=== PATIENT | female | born 1950 | race Caucasian/White ===

== ENCOUNTER → 2016-11-16 | Outpatient (CLI) | payer MEDICARE ==
[2016-11-16 13:17] LABS: Basophils % (A) 1 %; CH 26.7; CHCM 30.8; Eosinophils # (A) 0.1 k/uL (0-0.7); Eosinophils % (A) 3 %; HCT 42.5 % (34.0-46.0); HDW 2.51; HGB 13.3 gm/dL (11.4-16.0); Hypochromasia Slight; Luc # (Auto) 0.09; Luc % (Auto) 2; Lymphocytes # (A) 0.5 k/uL (1.0-4.8); Lymphocytes % (A) 12 %; MCH 27.1 pg (25.0-35.0); MCHC 31.2 g/dL (31.0-37.0); MCV 86.9 fL (80.0-100.0); Mean Platelet Volume 7.4; Monocytes # (A) 0.2 k/uL (0-1.0); Monocytes % (A) 4 %; Neutrophils # (A) 3.4 k/uL (1.3-7.7); Neutrophils % (A) 78 %; RDW 14.9 % (11.5-15.5); WBC 4.4 k/uL (3.8-10.6); WBC (Perox) 4.46
[2016-11-16 13:36] LABS: Partial Thromboplastin Time 26.3 sec (22.0-30.0); Prothrombin Time 10.5 sec (9.0-12.0)
[2016-11-16 13:46] LABS: Potassium 3.9 mmol/L (3.5-5.1)
== END | disposition home or self-care (01) ==
LOC: LABPAT 12:20
PROVIDERS: ATTEND Orthopaedic Surgery
DX: Z01.810 Encounter for preprocedural cardiovascular examination (principal); Z01.812 Encounter for preprocedural laboratory examination; M16.12 Unilateral primary osteoarthritis, left hip
CPT/HCPCS: 80051; 85025; 85610; 85730; 86850; 86900; 86901; 87070

== ENCOUNTER 2016-11-24 06:19 | Inpatient (IN) | payer MEDICARE ==
[2016-11-17 14:36] VITALS: BMI 43.4
--- NOTE | 2016-11-23 11:13 | HP ---
DATE OF ADMISSION: CHIEF COMPLAINT: Left hip pain. HISTORY OF PRESENT ILLNESS: The patient is a 66-year-old retired female who presents with progressive left hip and groin pain for the past year. It is worse with weight-bearing activities. She takes medications with partial temporary relief. She underwent right total hip arthroplasty in July of 2016 with good resolution of her symptoms. PAST MEDICAL HISTORY: Significant for arthritis, hypertension, hypothyroidism, and depression. PAST SURGICAL HISTORY: Significant for right total knee arthroplasty, right total hip arthroplasty. CURRENT MEDICATIONS: 1. Levothyroxine. 2. Potassium. 3. Aspirin. 4. Fentanyl patch. 5. Hydrochlorothiazide. 6. Plaquenil. 7. Tylenol. She has allergies to BEXTRA. FAMILY HISTORY: Significant for cancer. SOCIAL HISTORY: Negative for current tobacco or alcohol use. A 16-point review of systems otherwise reviewed and is noncontributory. On examination, the patient is approximately 5 foot 4, 275 pounds of endomorphic habitus. HEENT exam is nonfocal. Neck is supple. She is nontender about the lumbar spine. Passive motion of the left hip, flexion 70 degrees, external rotation with the hip flexed 50 degrees, internal rotation 0 degrees with pain. Her distal neurovascular exam appears be intact in the left lower extremity. AP of the pelvis obtained in the office shows severe left hip osteoarthrosis with [id number] changes. IMPRESSIONS: 1. Left hip osteoarthrosis - severe. 2. Increased body mass index. RECOMMENDATIONS: I talked to the patient at length regarding her treatment options. At this point, she opts to proceed with surgery. We will plan to proceed with left total hip arthroplasty. Risks and benefits are discussed at length in layman's terms. We will institute DVT prophylaxis postoperatively.
[~2016-11-24 06:19] MED LIST: ACETAMINOPHEN TAB 500 MG TAB PO ONE; DEXAMETHASONE SOD PHOSPHATE 10 MG/ML 1 ML VIAL IV ONE; HYDROmorphone 1 MG/ML 1 ML SYRINGE IVP PRN; MELOXICAM 7.5 MG TAB PO ONE; MIDAZOLAM 2 MG/2 ML VIAL IV PRN; ONDANSETRON 4 MG/2 ML VIAL IVP ONE; TRANEXAMIC ACID 1,000 MG in SODIUM CHLORIDE 0.9% 100 ML IVPB ONE; ceFAZolin 2 GM in SODIUM CHLORIDE 0.9% 100 ML IVPB ONE
[2016-11-24] MEDS: LACTATED RINGERS 1,000 ML IV SCH ×2 (07:09→23:02)
[2016-11-24] MEDS ORDERED: SCOPOLAMINE 1.5MG/72HR PATCH TRANSDERM ONE (07:09)
[2016-11-24] MEDS ORDERED: diphenhydrAMINE 50 MG/ML 1 ML VIAL ONE (07:58)
[2016-11-24] MEDS ORDERED: TRANEXAMIC ACID 1,000 MG/10 ML VIAL ONE (07:58)
[2016-11-24] MEDS ORDERED: fentaNYL (PF) 50 MCG/ML 2 ML AMP ONE (07:58)
[2016-11-24] MEDS ORDERED: MIDAZOLAM 2 MG/2 ML VIAL ONE (07:58)
[2016-11-24] MEDS ORDERED: PHENYLEPHRINE-0.9% NACL SYG 1 MG/10 ML SYRINGE ONE (07:58)
[2016-11-24] MEDS ORDERED: SODIUM CHLORIDE 0.9% 100 ML BAG ONE (07:58)
[2016-11-24] MEDS ORDERED: MORPHINE SULFATE (PF) 0.3 MG/0.3 ML SYR ONE (07:58)
[2016-11-24] MEDS ORDERED: PROPOFOL 10 MG/ML 20 ML VIAL IV ONE (07:58)
[2016-11-24] MEDS ORDERED: ePHEDrine 50 MG/ML 1 ML AMP ONE (07:58)
[2016-11-24] MEDS ORDERED: ceFAZolin 3,000 MG in SODIUM CHLORIDE 0.9% IRRIGATIO 3,000 ML IRRIGATION ONE (08:39)
[2016-11-24] MEDS ORDERED: LACTATED RINGERS 1,000 ML IV ONE ×2 (09:04→11:14)
[2016-11-24] MEDS ORDERED: HYDROcodone/APAP 7.5-325MG 1 EACH TAB PO PRN (09:58)
[2016-11-24] MEDS ORDERED: NALOXONE 0.4 MG/ML 1 ML VIAL IV PRN ×2 (09:58→14:06)
[2016-11-24] MEDS ORDERED: traMADol 50 MG TAB PO PRN (09:58)
[2016-11-24] MEDS ORDERED: HYDROmorphone 1 MG/ML 1 ML SYRINGE IVP PRN (09:58)
[2016-11-24] MEDS ORDERED: MAGNESIUM HYDROXIDE 2,400 MG/10 ML CUP PO PRN (09:58)
[2016-11-24] MEDS ORDERED: ONDANSETRON 4 MG/2 ML VIAL IVP PRN ×2 (09:58→14:06)
--- NOTE | 2016-11-24 10:37 | P.OP ---
Date of Procedure: 11/24/16 Preoperative Diagnosis: Left hip severe osteoarthrosis-primary Postoperative Diagnosis: Same Procedure(s) Performed: Left total hip cwfudirhzvpc-yqfbf-jag-lateral approach Implants: Depuy Corail size 12 coxa vera collared press-fit femoral stem, 32 mm +9 cobalt chrome femoral head, 52 mm acetabular shell with neutral polyethylene liner Anesthesia: spinal Surgeon: Star Caraballo Manager Landscape #1: Theodore Driver Estimated Blood Loss (ml): 250 Pathology: other (Femoral head) Condition: stable Disposition: PACU Indications for Procedure: The patient's a 66-year-old female who presents with progressive left hip pain secondary osteoarthrosis despite conservative treatment. A discussion of the risks and benefits of operative intervention versus continued conservative measures was made with the patient. She opted to proceed with surgery. Operative risks to include infection, neurovascular injury, development of blood clots, possible leg length discrepancy, possible dislocation, possible component loosening and need for subsequent procedures was discussed. Informed consent was obtained. Operative Findings: As below Description of Procedure: The patient was brought to the operating room, and after induction of spinal anesthesia was positioned lateral on the pegboard. Bony prominences were appropriately padded. The pelvis was stabilized perpendicular to the floor with a pegboard. The left lower extremity was prepped and draped in a normal fashion. Preoperative templating was previously performed to estimate component positioning and sizes. A longitudinal incision extending approximately 15 cm was then made centered over the greater trochanter extending superiorly to level ASIS and distally in line with the femoral shaft. The skin and subcutaneous tissues were divided sharply. Electrocautery was used for hemostasis. The fascia ayan and gluteus davie fascia was split in line skin incision. The muscle fibers were bluntly dissected proximally. The anterior and posterior margins the gluteus medius muscles identified in the anterior two thirds detached from the greater trochanter with electrocautery. The gluteus minimus tendon was identified and detached in a similar fashion. A wide capsulotomy was performed. The hip was gently dislocated. The neck was cut approximately 1 1/2 cm above the level of the lesser trochanter with a sagittal saw at a 45 angle to the shaft. The head was then extracted. Attention was then paid towards preparing the acetabulum. Retractors were placed anterior and posteriorly. The remaining labral and capsular tissue was debrided sharply clearly defining the acetabular margins. I began reaming with a 44 mm reamer taking care to initially medialize and then reaming at 45 of abduction and 20 of anteversion. Sequential reaming was performed up to 51 mm down to a bleeding bony surface. A trial 52 mm acetabular shell was inserted in 20 of anteversion and 45 of abduction. This was fully seated. There was good rim fit and stability. The trial component was removed. The final component was inserted in the same orientation and was fully seated. Again there was good rim fit and stability. A 6.5 mm x 25 mm cancellus screws placed posterior-superior. This obtained good purchase. A neutral polyethylene liner was then gently impacted. Care was taken to avoid any soft tissue interposition. Pulsatile lavage was utilized. Attention was then paid towards preparing the proximal femur. A box chisel was used to open the metaphyseal region. A canal finder was used to find the femoral canal. Sequential broaching was performed with the leg perpendicular to the floor in 15 of anteversion up to a size 12 broach. There was good rotational stability. A calcar mill was used to fashion a medial calcar. A coxa vara neck along with a 32 mm +9 head was placed. The hip was gently relocated. It was taken through a range of motion. I had good stability in flexion and extension with internal and external rotation. Again I felt there was good confucianist of soft tissue tension. The hip was gently dislocated. The trial components were then removed. The final femoral stem was inserted again with the leg perpendicular to the floor in 15 of anteversion. There was good rotational stability. The 32 mm +9 cobalt chrome head was gently impacted. The hip was reduced. The hip was taken through range of motion. Again there is good stability in flexion and extension with internal and external rotation. There was good confucianist of soft tissue tension. Pulsatile lavage was again utilized. The gluteus medius and minimus tendons reattached the greater trochanter with #2 Ethibond suture. A deep drain was placed exiting anteriorly. The gluteus davie fascia was closed with #2 Ethibond suture. The deep subcutaneous tissues reapproximated interrupted 0 Vicryl sutures. The superficial subcu tissues reapproximated with interrupted 2-0 Vicryl sutures. The skin was reprepped with 3-0 subcuticular strata fix suture. Skin tape and adhesive was applied. The patient was then awoken from sedation and transferred to recovery room in good condition. Blood loss was estimated at 250 mL. No complications were incurred. Sponge and needle counts were correct at the end the case.
--- NOTE | 2016-11-24 10:47 | XR ---
EXAMINATION TYPE: XR Hip Limited LT DATE OF EXAM: 11/24/2016 10:41 AM CLINICAL HISTORY: Left hip pain and osteoarthritis. TECHNIQUE: Single AP portable view of left hip is obtained immediately postoperatively. COMPARISON: None. FINDINGS: Metallic hardware from left hip arthroplasty is seen and appears satisfactory in alignment and position. There is evidence of recent surgery with subcutaneous gas noted at metallic neck compo nent and percutaneous drainage catheter. IMPRESSION: Metallic hardware from left hip arthroplasty is satisfactory in position.
[2016-11-24 13:01] VITALS: RESP 16
[2016-11-24] MEDS ORDERED: ONDANSETRON 4 MG/2 ML VIAL IVP ONE (13:13)
[2016-11-24] MEDS ORDERED: MORPHINE SULFATE 4 MG/ML SYRINGE IVP PRN (14:06)
[2016-11-24] MEDS: ceFAZolin 2 GM in SODIUM CHLORIDE 0.9% 100 ML IVPB SCH ×2 (17:01→23:02)
[2016-11-24] MEDS: diphenhydrAMINE 50 MG/ML 1 ML VIAL IVP PRN (17:25)
--- NOTE | 2016-11-24 19:57 | CONS ---
DATE OF CONSULTATION: 11/24/2016 REASON FOR CONSULTATION: Medical management requested by Dr. Caraballo. CONSULTATION: This is a pleasant 66-year-old patient of Dr. Leblanc who has undergone a left total hip arthroplasty. Patient's chronic stable medical conditions include rheumatoid arthritis, hypothyroid, urinary stress incontinence. Post procedure patient is propped up in bed, has a scopolamine patch. No nausea or vomiting. Comfortable. REVIEW OF SYSTEMS: CONSTITUTIONAL: None. HEENT: None. RESPIRATORY: None. CARDIOVASCULAR: None. GASTROINTESTINAL: None. GENITOURINARY: Bergman catheter. DERMATOLOGICAL: Negative. HEMATOLOGICAL: None. LYMPATICS: None. PSYCHIATRIC: None. NEUROLOGICAL: None. MUSCULOSKELETAL: As above. PAST MEDICAL HISTORY: 1. Osteoarthritis. 2. Rheumatoid arthritis. 3. Hypothyroid. 4. Urinary stress incontinence. PAST SURGICAL HISTORY: 1. Adenoidectomy. 2. Breast surgery. 3. Cholecystectomy. 4. Tonsillectomy. 5. Right knee replacement. SOCIAL HISTORY: Does not smoke or drink alcohol. Lives by herself. FAMILY HISTORY: Reviewed; non-contributory to presentation. ALLERGIES: BEXTRA. HOME MEDICATIONS: 1. Fentanyl 50 mcg patch every 72 hours. 2. Senokot-S 1 to 3 tablets p.o. daily. 3. Unithroid 175 mcg p.o. daily. 4. Plaquenil 200 mg p.o. b.i.d. 5. Hydrochlorothiazide 50 mg p.o. daily. 6. Vitamin D3 10,000 units p.o. Wednesday. 7. Aspirin 325 p.o. b.i.d. 8. Tylenol Arthritis. ALLERGIES: BEXTRA. On examination, temperature 97, pulse 88, respiration 16, blood pressure 130/61, pulse ox 96% on room air. GENERAL APPEARANCE: Well built; BMI of 43.4. Sitting up, comfortable. EYES: Pupils equal. Conjunctivae normal. Oral cavity normal. NECK: JVD not raised. Mass not palpable. RESPIRATORY: Effort normal. LUNGS: Clear. CARDIOVASCULAR: First and second sounds normal. No edema. ABDOMEN: Soft, nontender. Liver and spleen not palpable. PSYCHIATRY: Alert and oriented x3. Mood and affect normal. NEUROLOGICAL: Pupils equal. Cranial nerves grossly intact. MUSCULOSKELETAL: Evidence of osteoarthritis. INVESTIGATIONS: No blood work from today. ASSESSMENT: 1. Left total hip arthroplasty for osteoarthritis. 2. Rheumatoid arthritis, chronic, multiple joints bilaterally. 3. Hypothyroid, chronic. 4. Chronic urinary stress incontinence. 5. Morbid obesity; body mass index of 43.4. PLAN: Home medications will be resumed for DVT prophylaxis. Patient has been given Lovenox per Dr. Caraballo. Care was discussed with the patient. Thank you, Dr. Caraballo.
[2016-11-24] MEDS: SENNOSIDES-DOCUSATE SODIUM 1 EACH TAB PO SCH (20:11)
[2016-11-24] MEDS: HYDROXYCHLOROQUINE SULFATE 200 MG TAB PO SCH (20:14)
[2016-11-25] MEDS: diphenhydrAMINE 50 MG/ML 1 ML VIAL IVP PRN (02:24)
[2016-11-25] MEDS: HYDROcodone/APAP 7.5-325MG 1 EACH TAB PO PRN ×4 (06:39→22:49)
[2016-11-25] MEDS: LEVOTHYROXINE 100 MCG TAB PO SCH (06:41)
[2016-11-25] MEDS: LEVOTHYROXINE 75 MCG TAB PO SCH (06:41)
[2016-11-25 07:44] LABS: Basophils % (A) 0 %; CH 26.7; CHCM 31.1; Eosinophils % (A) 1 %; HCT 32.5 % (34.0-46.0); HDW 2.42; Hypochromasia Slight; Luc # (Auto) 0.12; Luc % (Auto) 2; Lymphocytes # (A) 0.6 k/uL (1.0-4.8); Lymphocytes % (A) 11 %; MCH 26.7 pg (25.0-35.0); MCV 86.2 fL (80.0-100.0); Mean Platelet Volume 8.2; Monocytes # (A) 0.3 k/uL (0-1.0); Monocytes % (A) 6 %; Neutrophils # (A) 4.5 k/uL (1.3-7.7); Neutrophils % (A) 81 %; RBC 3.77 m/uL (3.80-5.40); RDW 15.2 % (11.5-15.5); WBC 5.6 k/uL (3.8-10.6); WBC (Perox) 5.85
[2016-11-25] MEDS: ENOXAPARIN 40 MG/0.4 ML SYRINGE SQ SCH (08:00)
[2016-11-25] MEDS: HYDROXYCHLOROQUINE SULFATE 200 MG TAB PO SCH ×2 (08:01→20:49)
[2016-11-25] MEDS: FAMOTIDINE 20 MG TAB PO SCH (08:01)
[2016-11-25 08:02] LABS: HGB 10.1 gm/dL (11.4-16.0)
--- NOTE | 2016-11-25 10:35 | P.PN ---
Progress Note - Text Postoperative day 1 status post , left total hip arthroplasty, under spinal anesthesia, and intrathecal morphine given for postoperative analgesia, patient doing well, there is no anesthesia related complications, further management as per her primary team
[2016-11-25] MEDS: HYDROCHLOROTHIAZIDE 50 MG TAB PO SCH (12:26)
--- NOTE | 2016-11-25 12:27 | P.PN ---
Subjective Principal diagnosis: Status post left total hip arthroplasty Patient is seen today resting in her hospital chair, she appears to be in no acute distress. Pain is well-controlled. She's ambulated with therapy at this point. Urinary cath is discontinued. Denies any chest pain, shortness of breath, lightheadedness, fever chills. Objective - Vital Signs Vital signs: Vital Signs Temp 98.1 F 11/25/16 07:35 Pulse 76 11/25/16 09:48 Resp 16 11/25/16 07:35 BP 108/52 11/25/16 09:48 Pulse Ox 96 11/25/16 07:35 Intake & Output 11/24/16 11/25/16 11/25/16 18:59 06:59 18:59 Intake Total 5900 600 240 Output Total 700 405 400 Balance 5200 195 -160 Intake: IV 5900 600 Lactated Ringers 1,000 ml 600 @ 50 mls/hr IV .Q20H TYESHA Rx#:[id number] Oral 240 Output: Drainage 5 Left Hip 5 Urine 450 400 400 Uretheral (Bergman) 400 400 Estimated Blood Loss 250 Other: Voiding Method Indwelling Catheter - Exam Left lower extremity: The incision is clean, dry and intact. Minimal soft tissue swelling present on the lateral aspect of the hip. Calf is soft, no tenderness with palpation. Plantar flexion, dorsiflexion, EHL, FHL are intact. Sensory exam light touch shift extremities intact, cap refills less than 3 seconds. - Labs CBC & Chem 7: 11/25/16 06:54 Labs: Abnormal Lab Results - Last 24 Hours (Table) 11/25/16 Range/Units 06:54 RBC 3.77 L (3.80-5.40) m/uL Hgb 10.1 L D (11.4-16.0) gm/dL Hct 32.5 L (34.0-46.0) % Plt Count 135 L (150-450) k/uL Lymphocytes # 0.6 L (1.0-4.8) k/uL Assessment and Plan Plan: assessment: 1. Postop day #1 status post left total hip arthroplasty Plan: 1. Pain control, continue supportive oral medications 2. Continue weightbearing with therapy 3. Daily dressing changes/ice the hip 4. GI and DVT prophylaxis, continue Lovenox during inpatient stay 5. Encourage incentive spirometer 6. Medical recommendations 7. Discharge planning: Patient will likely be discharged home tomorrow Time with Patient: Less than 30
[2016-11-25] MEDS: SENNOSIDES-DOCUSATE SODIUM 1 EACH TAB PO SCH (20:50)
[2016-11-25] MEDS: LACTATED RINGERS 1,000 ML IV SCH (20:51)
--- NOTE | 2016-11-25 21:50 | PN ---
DATE OF SERVICE: 11/25/2016 PRESENTING COMPLAINT: ( ) INTERVAL HISTORY: Patient has undergone left hip surgery; doing well; sitting up, comfortable. No chest pain. No shortness of breath. Tolerated a diet. Did work with Physical Therapy. Review of systems done for constitutional, cardiovascular, GI, pulmonary, musculoskeletal; relevant findings as above. Current medications are reviewed. On examination, temperature 98.1, pulse 71, respiration 16, blood pressure 90/53, pulse ox 96% on room air. GENERAL APPEARANCE: Sitting up, comfortable. EYES: Pupils equal. Conjunctivae normal. NECK: JVD not raised. Mass not palpable. RESPIRATORY: Effort normal. Lungs are clear. CARDIOVASCULAR: First and second sounds normal. No edema. ABDOMEN: Soft, nontender. Liver and spleen not palpable. PSYCHIATRY: Alert and oriented x3. Mood and affect normal. INVESTIGATIONS: Hemoglobin 10.1. ASSESSMENT: 1. Left total hip arthroplasty for osteoarthritis. 2. Rheumatoid arthritis, chronically in multiple joints, bilateral. 3. Hypothyroidism, chronic. 4. Chronic urinary stress incontinence. 5. Morbid obesity; body mass index of 43.4. PLAN: Continue current medication and treatment plan. Care was discussed with the patient. Thank you, Dr. Caraballo.
[2016-11-25] MEDS: HYDROmorphone 1 MG/ML 1 ML SYRINGE IVP PRN (23:09)
[2016-11-26] MEDS: HYDROcodone/APAP 7.5-325MG 1 EACH TAB PO PRN ×3 (03:52→14:32)
[2016-11-26] MEDS: HYDROmorphone 1 MG/ML 1 ML SYRINGE IVP PRN (06:08)
[2016-11-26] MEDS: LEVOTHYROXINE 75 MCG TAB PO SCH (06:33)
[2016-11-26] MEDS: LEVOTHYROXINE 100 MCG TAB PO SCH (06:33)
[2016-11-26] MEDS: HYDROCHLOROTHIAZIDE 50 MG TAB PO SCH ×2 (08:32→09:14)
[2016-11-26] MEDS: ENOXAPARIN 40 MG/0.4 ML SYRINGE SQ SCH ×2 (09:13→11:25)
[2016-11-26] MEDS: FAMOTIDINE 20 MG TAB PO SCH ×2 (09:14→10:07)
[2016-11-26] MEDS: HYDROXYCHLOROQUINE SULFATE 200 MG TAB PO SCH ×2 (09:15→10:07)
--- NOTE | 2016-11-26 10:44 | P.DS ---
Providers Date of admission: 11/24/16 06:19 Expected date of discharge: 11/26/16 Attending physician: Star Caraballo Consults: 11/24/16 09:58 Consult Physician Routine Consulting Provider: Caleb Daigle Consult Reason/Comments: medical management Do you want consulting provider notified?: Yes Primary care physician: [facility] Hospital Course: Date of admission: 11/24/2016 Date of discharge: 11/26/2016 Admission diagnosis: Status post left total hip arthroplasty Discharge diagnosis: Same Attending physician: Dr. Caraballo Surgical procedures: Left total hip arthroplasty Brief history: Patient is a 66-year-old female with a history of progressive primary left hip osteoarthritis. At this point patient has failed conservative treatment measures and has opted to proceed with a elective left total hip arthroplasty. Hospital course: Details of patient's surgery can be found in operative report. Patient tolerated the procedure well and was subsequently transported to orthopedic floor. Patient's orthopeidc and medical care was provided daily. Patient had daily laboratory tests performed for evaluation of overall blood counts. Patient had daily physical therapy to include strengthening range of motion as well as education with walker ambulation. Patient was treated with Lovenox for their postoperative DVT prophylaxis during their inpatient stay. Patient was noted to have a relatively uneventful postoperative course. Patient reported satisfactory pain control with oral pain medications by postoperative day 0. Patient showed satisfactory progress with physical therapy. Patient moved steadily through the program and had no difficulty meeting the goals by postoperative day 2. Given patient's otherwise satisfactory course and having met physical therapy goals, plan is to discharge patient home on postoperative day 2. Discharge condition/disposition: Patient will be discharged home in stable condition. Discharge medications: Instructions are given on resumption of patient's normal daily medications per primary care recommendation, in addition patient will be prescribed Holmdel 7.5 mg/225 mg, tramadol 50 mg, aspirin 325 mg. Discharge instructions: 1. Wound care and infection precautions, keep incision dry and covered while showering, no lotions, creams, moisturizers. No soaking, tubs, pools, hottubs. Do not scrub over the incision. 2. Weight-bear as tolerated with walker / cane until follow-up. 3. Ice and elevate when necessary. Do not exceed 20 minutes per hour with ice pack. 4. Utilize compression sleeve until seen at first follow up appointment. 5. Visiting nursing care. 6. Home physical therapy. 7. Pain meds and anticoagulants per prescription. 8. Pain medication has potential to cause constipation. Increase oral fluid and fiber intake. Contact primary care provider if you have not had a bowel movement within 48 hours after discharge 9. No anti-inflammatory medication until discussed at first post operative visit, this including Motrin, Aleve, Mobic, Diclofenac. 10. Follow up in office at 2 weeks postop with Brian Driver PA-C 11. Follow up with your primary care doctor 7-10 days after discharge. 12. Contact [facility] with any questions, . Procedures: Left total hip arthroplasty Patient Condition at Discharge: Good Plan - Discharge Summary New Discharge Prescriptions: HYDROcodone/APAP 7.5-325MG [Holmdel 7.5] 1 - 2 each PO Q6HR PRN #60 tab PRN Reason: Pain traMADol HCl [Ultram] 50 mg PO Q6H PRN #60 tab PRN Reason: Pain Discharge Medication List Hydrochlorothiazide [Hydrodiuril] 50 mg PO DAILY 12/19/15 [History] Levothyroxine Sodium [Unithroid] 175 mcg PO DAILY 12/19/15 [History] Cholecalciferol (Vitamin D3) [Vitamin D3] 10,000 unit PO WINKLER 08/04/16 [History] Aspirin 325 mg PO BID #60 tab 08/06/16 [Rx] Acetaminophen [Tylenol Arthritis] 1,300 mg PO BID 11/17/16 [History] Hydroxychloroquine Sulfate [Plaquenil] 200 mg PO BID 11/17/16 [History] Sennosides-Docusate Sodium [Senokot-S] 1 - 3 tab PO DAILY 11/17/16 [History] fentaNYL [fentaNYL 50 MCG/HR] 50 mcg TOPICAL Q72H 11/17/16 [History] HYDROcodone/APAP 7.5-325MG [Holmdel 7.5] 1 - 2 each PO Q6HR PRN #60 tab 11/26/16 [ Rx] traMADol HCl [Ultram] 50 mg PO Q6H PRN #60 tab 11/26/16 [Rx] Follow up Appointment(s)/Referral(s): Theodore Driver PAC [PHYSICIAN CHIEF CLINICAL DIETITIAN] - 12/09/16 3:30 pm Patient Instructions/Handouts: Revision Total Joint Arthroplasty (DC) Activity/Diet/Wound Care/Special Instructions: [facility]: #[phone] Orthopedic Discharge Instructions: 1. Wound care and infection precautions, keep incision dry and covered while showering, no lotions, creams, moisturizers. No soaking, pools, hot tubs. Do not scrub over incision. 2. Weight-bear as tolerated with walker / cane until follow-up. 3. Ice and elevate when necessary. Do not exceed 20 minutes per hour with ice pack. 4. Utilize compression sleeve until seen at first follow up appointment. 5. Visiting nursing care. 6. Home physical therapy. 7. Pain meds and anticoagulants per prescription. 8. Pain medication has potential to cause constipation. Increase oral fluid and fiber intake. Contact primary care provider if you have not had a bowel movement within 48 hours after discharge. 9. No anti-inflammatory medication until discussed at first post operative visit, this including Motrin, Aleve, Mobic, Diclofenac. 10. Follow up in office at 2 weeks postop with Brian Driver PA-C 11. Follow up with your primary care doctor 7-10 days after discharge. 12. Contact [facility] with any questions, . Discharge Disposition: HOME WITH HOME HEALTH SERVICES
--- NOTE | 2016-11-26 11:13 | P.PN ---
Subjective Principal diagnosis: Status post left total hip arthroplasty Patient is seen today resting in her hospital chair, she appears to be in no acute distress. Pain is well-controlled. She's ambulated with therapy at this point. Denies any chest pain, shortness of breath, lightheadedness, fever chills. Objective - Vital Signs Vital signs: Vital Signs Temp 98.1 F 11/26/16 07:00 Pulse 74 11/26/16 07:00 Resp 16 11/26/16 07:00 BP 95/59 11/26/16 07:00 Pulse Ox 96 11/26/16 07:00 Intake & Output 11/25/16 11/26/16 11/26/16 18:59 06:59 18:59 Intake Total 820 120 Output Total 750 Balance 70 120 Intake: IV 100 Lactated Ringers 1,000 ml 100 @ 50 mls/hr IV .Q20H TYESHA Rx#:[id number] Oral 720 120 Output: Urine 750 Uretheral (Bergman) 400 Other: Voiding Method Toilet Toilet # Voids 2 1 1 - Exam Left lower extremity: The incision is clean, dry and intact. Minimal soft tissue swelling present on the lateral aspect of the hip. Calf is soft, no tenderness with palpation. Plantar flexion, dorsiflexion, EHL, FHL are intact. Sensory exam light touch shift extremities intact, cap refills less than 3 seconds. - Labs CBC & Chem 7: 11/25/16 06:54 Assessment and Plan Plan: assessment: 1. Postop day #2 status post left total hip arthroplasty Plan: 1. Pain control, continue supportive oral medications 2. Continue weightbearing with therapy 3. Daily dressing changes/ice the hip 4. GI and DVT prophylaxis, continue Lovenox during inpatient stay 5. Encourage incentive spirometer 6. Medical recommendations 7. Discharge planning: Patient will be discharged likely today Time with Patient: Less than 30
[2016-11-26] MEDS ORDERED: traMADol 50 MG TAB PO SCH (13:00)
[2016-11-26 14:18] VITALS: BP 95/60; PULSE 79; TEMP 97.9
--- NOTE | 2016-11-27 08:30 | PN ---
DATE OF SERVICE: 11/27/2016 PRESENTING COMPLAINT: Hip surgery. INTERVAL HISTORY: This patient was seen by me this morning status post hip surgery. Pain is better controlled. Tolerating a diet. No chest pain. No dizziness. Review of systems done for constitutional, cardiovascular, GI, pulmonary, musculoskeletal; relevant findings as above. Current medications are reviewed. On examination, temperature 98.1, pulse 74, respirations 16, blood pressure 95/69, pulse ox 96% on room air. GENERAL APPEARANCE: Sitting up, comfortable. EYES: Pupils equal. Conjunctivae normal. NECK: JVD not raised. Mass not palpable. RESPIRATORY: Effort normal. Lungs are clear. CARDIOVASCULAR: First and second sounds normal. No edema. ABDOMEN: Soft, nontender. Liver and spleen not palpable. PSYCHIATRY: Alert and oriented x3. Mood and affect normal. INVESTIGATIONS: No blood work from today. ASSESSMENT: 1. Left total hip arthroplasty for osteoarthritis. 2. Rheumatoid arthritis, chronically in multiple joints, bilateral. 3. Hypothyroidism, chronic. 4. Chronic urinary stress incontinence. 5. Morbid obesity, body mass index of 43.4. PLAN: Patient is doing well, stable, should follow up with family doctor when discharged. Thank you, Dr. Caraballo.
== END 2016-11-26 15:55 | disposition home health service (06) | DRG 470 ==
LOC: 2ORMAIN 06:19 → 3SUR 09:55
PROVIDERS: ADMIT Orthopaedic Surgery; ATTEND Orthopaedic Surgery
PROC: 0SRB02A Replacement of Left Hip Joint with Metal on Polyethylene Synthetic Substitute, Uncemented, Open Approach (ICD-10-PCS; principal; 2016-11-24 08:00)
DX: M16.12 Unilateral primary osteoarthritis, left hip (principal); Z68.41 Body mass index [BMI] 40.0-44.9, adult; I10 Essential (primary) hypertension; E66.01 Morbid (severe) obesity due to excess calories; E03.9 Hypothyroidism, unspecified; M06.9 Rheumatoid arthritis, unspecified; N39.3 Stress incontinence (female) (male); Z79.82 Long term (current) use of aspirin; Z79.891 Long term (current) use of opiate analgesic; Z79.899 Other long term (current) drug therapy; Z88.8 Allergy status to other drugs, medicaments and biological substances
CPT/HCPCS: 73501; 85025; 86850; 86900; 86901; 88300

== ENCOUNTER → 2023-10-15 | Outpatient (CLI) | payer MEDICARE ==
--- NOTE | 2023-10-15 14:37 | MR ---
EXAMINATION TYPE: MR lumbar spine wo con DATE OF EXAM: 10/15/2023 COMPARISON: Lumbar spine x-ray October 13, 2023 HISTORY: Low back pain into rt buttocks TECHNIQUE: Multiplanar, multisequence imaging of the lumbar spine is performed without IV contrast. FINDINGS: Sagittal images of the lumbar spine show vertebral body heights to remain satisfactory. Mul tilevel spondylolisthesis or grade 1 retrolisthesis L1 on L2 through the L5 and S1 levels. Multilevel disc desiccation and moderate to advanced disc space narrowing and spurring throughout the entire fariha mbar spine. The conus medullaris is normal in position and signal ending superior L1 level. Heterogen eous Modic type II endplate changes at L3-L4 level and the inferior L1-L2 level are noted. Axial images show T12-L1 level to appear within normal limits. Axial images at L1-L2 level show spondylolisthesis with moderate broad-based posterior disc protrusio n effacing the anterior thecal sac and mild facet arthropathy and ligamentum flavum hypertrophy effac ing posterolateral thecal sac. There is mild bilateral neural foraminal narrowing. Axial images at L2-L3 level show less prominent spondylolisthesis with mild/moderate broad-based post erior disc protrusion effacing the anterior thecal sac. There is mild/moderate facet arthropathy and ligamentum flavum hypertrophy effacing the posterior lateral thecal sac. There is mild bilateral neur al foraminal narrowing. Axial images at the L3-L4 level shows mild broad-based disc bulge mildly effaces the anterior thecal sac along with moderate facet arthropathy and ligamentum flavum hypertrophy effacing the posterior la teral thecal sac. There is mild bilateral neural foraminal narrowing. Axial images at L4-L5 level shows spondylolisthesis with moderate broad-based posterior disc protrusi on effacing the anterior thecal sac. There is moderate to advanced facet arthropathy and ligamentous hypertrophy present irish moss gatherer lateral thecal sac. Most prominent spinal canal effacement at this level a xial image 9. There is mild bilateral neural foraminal narrowing. Axial images at L5-S1 level show mild facet arthropathy bilaterally. There is right paracentral/whitney inal disc protrusion causing asymmetric mild right-sided neural foraminal narrowing anteriorly. Left- sided neural foramen is patent. There appears to be 3.0 cm thin-walled cyst in the right hepatic lobe axial image 31. IMPRESSION: Multilevel spondylolisthesis and degenerative change of the lumbar spine as detailed karina williamson
== END | disposition home or self-care (01) ==
LOC: RADMRIMAIN 13:03
PROVIDERS: ATTEND Orthopaedic Surgery
DX: M43.16 Spondylolisthesis, lumbar region (principal); M51.26 Other intervertebral disc displacement, lumbar region; M47.816 Spondylosis without myelopathy or radiculopathy, lumbar region
CPT/HCPCS: 72148